=== PATIENT | male | born 1990 | race African-American/Black ===

== ENCOUNTER 2021-11-06 09:42 | Inpatient (IN) | payer BC, OTHER ==
[2021-11-06] MEDS ORDERED: ACETAMINOPHEN 1000 MG/100 ML BAG IVPB ONE (10:09)
[2021-11-06] MEDS ORDERED: LACTATED RINGERS SOLUTION 1000 ML INFUS.BAG IV ONE (10:09)
[2021-11-06] MEDS ORDERED: ONDANSETRON 4 MG/2 ML VIAL IVPB ONE ×2 (10:10→13:18)
[2021-11-06] MEDS ORDERED: PANTOPRAZOLE SODIUM 40 MG VIAL IVPUSH ONE (10:10)
[2021-11-06] MEDS ORDERED: MAG HYDROX/AL HYDROX/SIMETH 30 ML UNIT-DOSE CUP PO ONE (10:10)
[2021-11-06] MEDS ORDERED: FAMOTIDINE 20 MG/50 ML IVPB 20 MG/50 ML MG IVPB ONE ×2 (10:11→10:27)
[2021-11-06] MEDS ORDERED: METOCLOPRAMIDE HCL INJECTION 10 MG/2 ML VIAL IVPB ONE (10:22)
[2021-11-06] MEDS ORDERED: ACETAMINOPHEN INJECTION 100 ML IVPB ONE (10:26)
[2021-11-06] MEDS ORDERED: METOCLOPRAMIDE HCL INJECTION 10 MG/2 ML VIAL ONE (10:26)
[2021-11-06] MEDS ORDERED: ONDANSETRON 4 MG/2 ML VIAL ONE ×2 (10:27→13:19)
[2021-11-06] MEDS ORDERED: MAG HYDROX/AL HYDROX/SIMETH 30 ML UNIT-DOSE CUP ONE (10:27)
[2021-11-06] MEDS ORDERED: PANTOPRAZOLE SODIUM 40 MG VIAL ONE (10:27)
[2021-11-06 11:46] LABS: BASO % 0.2 % (0-2.0); HEMATOCRIT 39.9 % (35.4-49); HEMOGLOBIN 14.5 GM/dL (11.7-16.9); LYMPH % 3.5 % (8-40); MCHC 36.4 g/dl (32.0-35.9); MEAN CELL VOLUME 82.5 fl (80-96); MONO % 6.3 % (3.8-10.2); PLATELET COUNT 140 10^3/uL (134-434); RBC 4.84 M/mm3 (4.00-5.60); RDW 14.2 % (11.9-15.9); WHITE BLOOD COUNT 11.4 K/mm3 (4.0-10.0)
[2021-11-06] MEDS ORDERED: SUCRALFATE 1 GM TABLET (FP) ONE (12:01)
[2021-11-06] MEDS ORDERED: SUCRALFATE 1 GM TABLET (FP) PO ONE (12:10)
[2021-11-06 12:11] LABS: BLOOD UREA NITROGEN 5.2 mg/dL (7-18); CALCIUM 8.8 mg/dL (8.5-10.1); URINE APPEARANCE CLEAR; URINE BILIRUBIN NEGATIVE (NEGATIVE); URINE COLOR YELLOW; URINE GLUCOSE (UA) NEGATIVE (NEGATIVE); URINE KETONE 1+ (NEGATIVE); URINE LEUK ESTERASE NEGATIVE (NEGATIVE); URINE NITRITE NEGATIVE (NEGATIVE); URINE PROTEIN NEGATIVE (NEGATIVE); URINE UROBILINOGEN 0.2 mg/dL (0.2-1.0)
[2021-11-06 12:12] LABS: ALBUMIN 4.2 g/dl (3.4-5.0)
[2021-11-06 12:14] LABS: CREATININE 0.8 mg/dL (0.55-1.3)
[2021-11-06 12:15] LABS: TOT PROT 7.7 g/dl (6.4-8.2)
[2021-11-06 12:16] LABS: BILIRUBIN,TOTAL 0.8 mg/dL (0.2-1); MAGNESIUM 1.8 mg/dL (1.8-2.4)
[2021-11-06 12:20] LABS: PHOSPHOROUS 1.8 mg/dL (2.5-4.9)
[2021-11-06] MEDS ORDERED: morphine CARPU-JECT 4 MG/1 ML DISP.SYRIN IVPUSH ONE (13:07)
[2021-11-06] MEDS ORDERED: morphine SULFATE 4 MG/ML VIAL ONE ×2 (13:19→17:01)
[2021-11-06] MEDS ORDERED: POTASSIUM PHOSPHATE 30 MM in DEXTROSE 5%-WATER - 500 ML IVPB ONE (15:30)
[2021-11-06] MEDS: LACTATED RINGERS SOLUTION 1,000 ML/1,000 ML INFUS.BAG IV SCH (15:46)
[2021-11-06] MEDS ORDERED: morphine SULFATE 4 MG/ML VIAL IVPUSH ONE (16:07)
[2021-11-06] MEDS ORDERED: ONDANSETRON 4 MG/2 ML VIAL IVPUSH PRN (17:26)
[2021-11-06] MEDS ORDERED: DEXTROSE 5%-0.45% SALINE 1,000 ML IV SCH (17:30)
[2021-11-07 00:17] VITALS: BMI 26.2
[2021-11-07] MEDS: LACTATED RINGERS SOLUTION 1,000 ML/1,000 ML INFUS.BAG IV SCH ×2 (00:56→12:20)
[2021-11-07] MEDS ORDERED: ACETAMINOPHEN 1000 MG/100 ML BAG IVPB ONE (05:27)
[2021-11-07] MEDS ORDERED: DEXTROSE 5%-0.45% SALINE 1,000 ML IV SCH (09:14)
[2021-11-07 09:52] LABS: BASO % 0.3 % (0-2.0); EOS % 0.1 % (0-4.5); HEMATOCRIT 39.7 % (35.4-49); LYMPH % 8.5 % (8-40); MCH 29.4 pg (25.7-33.7); MCHC 35.3 g/dl (32.0-35.9); MEAN CELL VOLUME 83.2 fl (80-96); MEAN PLT VOLUME 11.2 fl (7.5-11.1); MONO % 12.5 % (3.8-10.2); NEUT % 78.6 % (42.8-82.8); PLATELET COUNT 149 10^3/uL (134-434); RBC 4.77 M/mm3 (4.00-5.60); RDW 14.2 % (11.9-15.9); WHITE BLOOD COUNT 11.1 K/mm3 (4.0-10.0)
[2021-11-07 09:59] LABS: ACTIVATED PTT 28.8 SECONDS (25.2-36.5)
[2021-11-07 10:01] LABS: INR 1.68 (0.83-1.09); PROTHROMBIN TIME (PATIENT) 19.4 SEC (9.7-13.0)
[2021-11-07 10:10] LABS: CHLORIDE 102 mmol/L (98-107); SODIUM 139 mmol/L (136-145)
[2021-11-07 10:14] LABS: CALCIUM 8.6 mg/dL (8.5-10.1)
[2021-11-07 10:15] LABS: ALBUMIN 3.6 g/dl (3.4-5.0); ANION GAP 10 MMOL/L (8-16); CO2 27 mmol/L (21-32); GLUCOSE,RANDOM 113 mg/dL (74-106); LIPASE 673 U/L (73-393); MAGNESIUM 1.8 mg/dL (1.8-2.4)
[2021-11-07 10:18] LABS: CREATININE 0.5 mg/dL (0.55-1.3); SGOT/AST 517 U/L (15-37)
[2021-11-07] MEDS: KETOROLAC TROMETHAMINE 15 MG/ML VIAL IVPUSH PRN (10:28)
[2021-11-07 10:56] LABS: BLOOD UREA NITROGEN 1.8 mg/dL (7-18)
[2021-11-07] MEDS ORDERED: PHYTONADIONE 10 MG/1 ML AMP IVPB ONE (13:15)
[2021-11-07 13:37] LABS: ALK PHOS 118 U/L (45-117); PHOSPHOROUS 2.7 mg/dL (2.5-4.9); SGPT/ALT 442 U/L (13-61); TOT PROT 7.1 g/dl (6.4-8.2)
[2021-11-07] MEDS ORDERED: PIPERACILLIN/TAZOBACTAM 3.375 GM VIAL IVPB ONE ×2 (13:45→17:04)
[2021-11-07] MEDS ORDERED: DEXTROSE 5%-WATER - 50 ML IVPB ONE ×2 (13:46→17:04)
[2021-11-07] MEDS: PIPERACILLIN/TAZOB 3.375 GM 3.375 GM in DEXTROSE 5%-WATER - 50 ML IVPB SCH ×2 (14:04→18:04)
[2021-11-07] MEDS ORDERED: POTASSIUM PHOSPHATE 30 MM in DEXTROSE 5%-WATER - 500 ML IVPB ONE (15:00)
[2021-11-07] MEDS ORDERED: PIPERACILLIN/TAZOB 3.375 GM 3.375 GM in DEXTROSE 5%-WATER - 50 ML IVPB SCH (18:00)
[2021-11-07] MEDS: KCL 10 MEQ IVPB 10 MEQ/100 ML INFUS.BAG IVPB SCH (23:44)
[2021-11-08] MEDS ORDERED: POTASSIUM CHLORIDE TABS 20 MEQ TABLET.ER (FP) PO ONE (01:04)
[2021-11-08] MEDS: KCL 10 MEQ IVPB 10 MEQ/100 ML INFUS.BAG IVPB SCH (01:06)
[2021-11-08] MEDS ORDERED: DEXTROSE 5%-WATER - 50 ML IVPB ONE (01:31)
[2021-11-08] MEDS ORDERED: PIPERACILLIN/TAZOBACTAM 3.375 GM VIAL IVPB ONE ×4 (01:31→16:02)
[2021-11-08] MEDS ORDERED: SODIUM CHLORIDE 50 ML IVPB ONE (01:39)
[2021-11-08] MEDS ORDERED: PIPERACILLIN/TAZOB 3.375 GM 3.375 GM in SODIUM CHLORIDE 50 ML IVPB SCH (02:00)
[2021-11-08] MEDS: LACTATED RINGERS SOLUTION 1,000 ML/1,000 ML INFUS.BAG IV SCH (05:37)
[2021-11-08] MEDS ORDERED: LACTATED RINGERS SOLUTION 1,000 ML/1,000 ML INFUS.BAG IV SCH (08:11)
[2021-11-08] MEDS: KETOROLAC TROMETHAMINE 15 MG/ML VIAL IVPUSH PRN (09:01)
[2021-11-08] MEDS ORDERED: ROCURONIUM BROMIDE 100 MG/10 ML VIAL ONE ×2 (11:16→14:46)
[2021-11-08] MEDS ORDERED: PROPOFOL 20 ML ONE ×2 (11:16→14:46)
[2021-11-08] MEDS ORDERED: MIDAZOLAM HCL 2 MG/2 ML SINGLE DOSE VIAL ONE ×2 (11:16→14:46)
[2021-11-08] MEDS ORDERED: CEFTRIAXONE 1 GM in DEXTROSE 5%-WATER - 50 ML IVPB ONE (12:48)
[2021-11-08] MEDS ORDERED: ceFAZolin 2 GRAM PREMIX BAG IVPB ONE (14:44)
[2021-11-08] MEDS ORDERED: BUPIVACAINE HCL/PF 0.25% (2.5MG/ML) 10 ML VIAL IJ ONE ×2 (14:45→17:13)
[2021-11-08] MEDS ORDERED: GLYCOPYRROLATE 0.2 MG/1 ML VIAL ONE (16:54)
[2021-11-08] MEDS ORDERED: NEOSTIGMINE METHYLSULFATE 0.5 MG/ML - 10 ML MDV ONE (16:54)
[2021-11-08] MEDS ORDERED: ONDANSETRON 4 MG/2 ML VIAL IVPUSH PRN ×3 (17:40→18:21)
[2021-11-08] MEDS ORDERED: LACTATED RINGERS SOLUTION 1,000 ML IV SCH (17:45)
[2021-11-08] MEDS ORDERED: oxyCODONE HCL 5 MG TABLET PO PRN (18:21)
[2021-11-08] MEDS ORDERED: KETOROLAC TROMETHAMINE 15 MG/ML VIAL IVPUSH PRN (18:21)
[2021-11-08 19:42] LABS: BASO % 0.2 % (0-2.0); HEMOGLOBIN 13.3 GM/dL (11.7-16.9); MCH 29.4 pg (25.7-33.7); MEAN CELL VOLUME 83.9 fl (80-96); MEAN PLT VOLUME 10.4 fl (7.5-11.1); MONO % 6.1 % (3.8-10.2); NEUT % 90.7 % (42.8-82.8); PLATELET COUNT 152 10^3/uL (134-434); RBC 4.53 M/mm3 (4.00-5.60); RDW 14.4 % (11.9-15.9); WHITE BLOOD COUNT 13.9 K/mm3 (4.0-10.0)
[2021-11-08 19:56] LABS: INR 1.63 (0.83-1.09); PROTHROMBIN TIME (PATIENT) 18.8 SEC (9.7-13.0)
[2021-11-08 20:16] LABS: BLOOD UREA NITROGEN 5.2 mg/dL (7-18); CALCIUM 8.7 mg/dL (8.5-10.1); MAGNESIUM 1.6 mg/dL (1.8-2.4)
[2021-11-08 20:19] LABS: CREATININE 0.8 mg/dL (0.55-1.3); PHOSPHOROUS 1.4 mg/dL (2.5-4.9)
[2021-11-08 20:21] LABS: BILIRUBIN,TOTAL 1.8 mg/dL (0.2-1); TOT PROT 6.2 g/dl (6.4-8.2)
[2021-11-08] MEDS: oxyCODONE HCL 5 MG TABLET PO PRN (22:46)
[2021-11-09] MEDS ORDERED: CEFAZOLIN 1 GM in DEXTROSE 5%-WATER - 50 ML IVPB SCH (00:30)
[2021-11-09] MEDS ORDERED: PIPERACILLIN/TAZOBACTAM 3.375 GM VIAL IVPB ONE ×4 (01:24→23:22)
[2021-11-09] MEDS ORDERED: DEXTROSE 5%-WATER - 50 ML IVPB ONE ×4 (01:24→23:22)
[2021-11-09] MEDS: LACTATED RINGERS SOLUTION 1,000 ML IV SCH ×2 (01:35→21:04)
[2021-11-09] MEDS: CEFAZOLIN 1 GM in SODIUM CHLORIDE 50 ML IVPB SCH ×4 (01:37→23:49)
[2021-11-09] MEDS: PIPERACILLIN/TAZOB 3.375 GM 3.375 GM in DEXTROSE 5%-WATER - 50 ML IVPB SCH ×3 (01:38→17:31)
[2021-11-09 10:01] LABS: BASO % 0.4 % (0-2.0); EOS % 0.4 % (0-4.5); HEMATOCRIT 37.7 % (35.4-49); HEMOGLOBIN 13.1 GM/dL (11.7-16.9); LYMPH % 13.4 % (8-40); MCH 29.6 pg (25.7-33.7); MCHC 34.9 g/dl (32.0-35.9); MEAN PLT VOLUME 10.9 fl (7.5-11.1); MONO % 9.9 % (3.8-10.2); NEUT % 75.9 % (42.8-82.8); PLATELET COUNT 158 10^3/uL (134-434); RBC 4.43 M/mm3 (4.00-5.60); RDW 14.2 % (11.9-15.9); WHITE BLOOD COUNT 12.9 K/mm3 (4.0-10.0)
[2021-11-09 10:44] LABS: ALBUMIN 2.8 g/dl (3.4-5.0); CALCIUM 8.6 mg/dL (8.5-10.1)
[2021-11-09 10:45] LABS: MAGNESIUM 1.9 mg/dL (1.8-2.4)
[2021-11-09 10:47] LABS: CREATININE 0.9 mg/dL (0.55-1.3); PHOSPHOROUS 2.5 mg/dL (2.5-4.9)
[2021-11-09 10:49] LABS: BILIRUBIN,TOTAL 1.1 mg/dL (0.2-1); TOT PROT 6.2 g/dl (6.4-8.2)
[2021-11-09 10:53] LABS: BLOOD UREA NITROGEN 3.9 mg/dL (7-18)
[2021-11-09] MEDS: oxyCODONE HCL 5 MG TABLET PO PRN (12:21)
[2021-11-09] MEDS ORDERED: ceFAZolin SODIUM 1 GM VIAL ONE ×2 (16:06→20:56)
[2021-11-09] MEDS ORDERED: SODIUM CHLORIDE 50 ML IVPB ONE ×2 (16:06→20:57)
[2021-11-09] MEDS ORDERED: Insulin (LOG) Aspart 100 UNITS/ML VIAL SQ SCH (16:30)
[2021-11-10] MEDS: PIPERACILLIN/TAZOB 3.375 GM 3.375 GM in DEXTROSE 5%-WATER - 50 ML IVPB SCH ×2 (00:59→10:03)
[2021-11-10 05:16] VITALS: BP 107/64; PULSE 68; TEMP 98.1
[2021-11-10] MEDS ORDERED: oxyCODONE HCL 5 MG TABLET PO PRN (08:15)
[2021-11-10] MEDS ORDERED: KETOROLAC TROMETHAMINE 15 MG/ML VIAL IVPUSH PRN (08:15)
[2021-11-10] MEDS ORDERED: ceFAZolin SODIUM 1 GM VIAL ONE (08:19)
[2021-11-10] MEDS: CEFAZOLIN 1 GM in SODIUM CHLORIDE 50 ML IVPB SCH (08:31)
[2021-11-10] MEDS: LACTATED RINGERS SOLUTION 1,000 ML IV SCH (08:36)
[2021-11-10 09:43] LABS: CALCIUM 9.2 mg/dL (8.5-10.1)
[2021-11-10 09:44] LABS: ALBUMIN 2.8 g/dl (3.4-5.0); BLOOD UREA NITROGEN 3.2 mg/dL (7-18); MAGNESIUM 1.8 mg/dL (1.8-2.4)
[2021-11-10 09:46] LABS: PHOSPHOROUS 2.5 mg/dL (2.5-4.9)
[2021-11-10 09:47] LABS: CREATININE 0.8 mg/dL (0.55-1.3)
[2021-11-10 09:48] LABS: BILIRUBIN,TOTAL 0.7 mg/dL (0.2-1); TOT PROT 6.2 g/dl (6.4-8.2)
[2021-11-10] MEDS ORDERED: PIPERACILLIN/TAZOBACTAM 3.375 GM VIAL IVPB ONE (09:48)
[2021-11-10] MEDS ORDERED: DEXTROSE 5%-WATER - 50 ML IVPB ONE (09:49)
[2021-11-10 10:33] LABS: BASO % 0.5 % (0-2.0); EOS % 0.9 % (0-4.5); HEMATOCRIT 38.3 % (35.4-49); HEMOGLOBIN 13.5 GM/dL (11.7-16.9); LYMPH % 23.1 % (8-40); MCH 30.1 pg (25.7-33.7); MCHC 35.3 g/dl (32.0-35.9); MEAN CELL VOLUME 85.1 fl (80-96); MEAN PLT VOLUME 9.9 fl (7.5-11.1); MONO % 10.4 % (3.8-10.2); NEUT % 65.1 % (42.8-82.8); PLATELET COUNT 177 10^3/uL (134-434); WHITE BLOOD COUNT 9.3 K/mm3 (4.0-10.0)
[2021-11-10 12:23] LABS: PH,URINE >= 9.0 (5.0-8.0); URINE APPEARANCE CLEAR; URINE BILIRUBIN NEGATIVE (NEGATIVE); URINE COLOR YELLOW; URINE GLUCOSE (UA) NEGATIVE (NEGATIVE); URINE KETONE NEGATIVE (NEGATIVE); URINE LEUK ESTERASE NEGATIVE (NEGATIVE); URINE NITRITE NEGATIVE (NEGATIVE); URINE PROTEIN NEGATIVE (NEGATIVE); URINE UROBILINOGEN 0.2 mg/dL (0.2-1.0)
== END 2021-11-10 17:30 | disposition home or self-care (01) | DRG 417 ==
LOC: JER 09:42 → JERBED 14:20 → J6S 20:33
PROVIDERS: ADMIT Internal Medicine; ATTEND Internal Medicine
PROC: 0DNW3ZZ Release Peritoneum, Percutaneous Approach (ICD-10-PCS; 2021-11-08)
PROC: 0FT44ZZ Resection of Gallbladder, Percutaneous Endoscopic Approach (ICD-10-PCS; principal; 2021-11-08 11:30)
DX: K80.00 Calculus of gallbladder with acute cholecystitis without obstruction (principal); K85.10 Biliary acute pancreatitis without necrosis or infection; E87.6 Hypokalemia; E83.39 Other disorders of phosphorus metabolism; K66.0 Peritoneal adhesions (postprocedural) (postinfection); K82.A1 Gangrene of gallbladder in cholecystitis
CPT/HCPCS: 36415; 71045-TC-FY; 74018-TC-FY; 74177-TC; 74181-TC; 76705-TC; 80053; 81003; 82962; 83690; 83735; 84100; 84478; 85025; 85610; 85730; 86850; 86900; 86901; 87086; 88304-TC; 93005; 93010; 94010; 94760; 99285-25; C9803; U0003; U0005